=== PATIENT | male | born 1975 | race Caucasian/White ===

== ENCOUNTER 2020-03-15 19:32 | Emergency (ER) | payer SELFPAY ==
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
== END 2020-03-15 21:09 | disposition home or self-care (01) ==
LOC: ERS 19:32
DX: S22.32XA Fracture of one rib, left side, initial encounter for closed fracture (principal); V89.2XXA Person injured in unspecified motor-vehicle accident, traffic, initial encounter
CPT/HCPCS: 71045